=== PATIENT | male | born 1970 | race Caucasian/White ===

== ENCOUNTER 2016-07-26 10:46 | Inpatient (IN) | payer OTHER ==
[~2016-07-26] VITALS: Ht 175.3 cm; Wt 69.2 kg
--- NOTE | ~2016-07-26 | INDIVTXPLN ---
"PATIENT: KEENAN CONNOLLY | | [facility] UNIT #: [id number] | [address] AGE/SEX: 46 M : 70 | [address] | [place] [address] ADMIT/REG DATE: 07/26/16 | ROOM: [facility] LOC: ADTC | ADTC | Individualized Treatment Plan Date: 02 AUGUST 2016 Problem Statement/Issue Identified: KEENAN HAS RELAPSED AFTER MULTIPLE TREATMENT ATTEMPTS. Goal: KEENAN WILL LEARN ABOUT ALL ASPECTS OF HIS DISEASE AND BECOME WILLING TO FOLLOW THROUGH WITH ANY AND ALL STAFF RECOMMENDATIONS FOR HIS AFTERCARE. Objectives/Activities to achieve goal: 1. Keenan will complete GETTING STARTED IN TREATMENT identifying his feelings about being in treatment again, a brief life history and identifying his characteristics in active addiction vs. his characteristics in active recovery. He will process his work with his primary counselor and selected pages with his peer group. Due Date: Complete: Incomplete: 2. Keenan will read [employer] high-lighting those thinking and behaviorial patterns he recognizes as his own. He will process any new insights with his primary counselor. Due Date: Complete: Incomplete: 3. Keenan will complete an honest and thorough STEP ONE identify specific examples of high risk behaviors, efforts to control or end his chemical use and a list of personal values he has compromised in his addiction. He will process his work and insights gained with his primary counselor and selected pages with his peer group. Due Date: Complete: Incomplete: Client signature Date Counselor signature Date Outcome/Measurement of Progress Towards Goal: Counselor's signature Date "
--- NOTE | ~2016-07-26 | TXPLANREV ---
"PATIENT: GIO OCNNOLLY | | [facility] UNIT #: [id number] | [address] AGE/SEX: 46 M : 70 | [address] | [place] [address] ADMIT/REG DATE: 07/26/16 | ROOM: [facility] [place] LOC: ADTC | ADTC | Treatment Plan/Staffing Review Date: 14 AUGUST 2016 Treatment plan was reviewed and determined appropriate as written: TREATMENT PLAN IS APPROPRIATE WRITTEN. Treatment plan was reviewed and the following changes/addition/deletions are necessary: NO CHANGES/ADDITIONS/DELETIONS ARE NECESSARY. Discharge plans were reviewed and determined appropriate as previously documented: [facility] Discharge plans were reviewed and determined to be as follows: TENTATIVE DISCHARGE DATE IS 23 AUGUST 2016. Other pertinent issues discussed during this staffing review include: CLIENT LEARNED YESTERDAY THAT HE IS ACCEPTED IN TO THE [facility] IN [place]. CLIENT IS EXCITED AND LOOKING FORWARD TO A NEW BEGINNING IN A NEW COMMUNITY. CLIENT HAS MADE GOOD PROGRESS ON HIS TREATMENT PLAN OBJECTIVES. HE CONTINUES TO GAIN NEW INSIGHT AND UNDERSTANDING. CLIENT HAS A SPONSOR AND HAS AN ESTABLISHED SUPPORT SYSTEM IN THE [employer] THAT HE IS DRAWING ON FOR TRANSPORTATION TO [place]. CLIENT EXPRESSES EXCITMENT ABOUT MEETING NEW PEOPLE AND GETTING INVOLVED IN THE [employer] COMMUNITY IN [place]. HE IS WORKING ON SPIRITUALITY AND RELAPSE PREVENTION/MAINTAINANCE PLAN. Staff Present: COCO HINDS PRIMARY COUNSELOR: CARISA COHEN [facility] Client Signature Counselor Signature Date Time "
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
--- NOTE | ~2016-07-26 | TXPLANREV ---
"PATIENT: GIO CONNOLLY | | [facility] UNIT #: [id number] | [address] AGE/SEX: 46 M : 70 | [address] | [place] [address] ADMIT/REG DATE: 07/26/16 | [facility] | ADTC | Treatment Plan/Staffing Review Date: 21 AUGUST 2016 Treatment plan was reviewed and determined appropriate as written: TREATMENT PLAN IS APPROPRIATE WRITTEN. Treatment plan was reviewed and the following changes/addition/deletions are necessary: NO CHANGES/ADDITIONS/DELETIONS ARE NECESSARY. Discharge plans were reviewed and determined appropriate as previously documented: YES Discharge plans were reviewed and determined to be as follows: CLIENT HAS BE[facility]. HE WILL BE ADMITTED THERE SATURDAY 1 PM. Other pertinent issues discussed during this staffing review include: CLIENT IS NEARLY FINISHED WITH TREATMENT PLAN OBJVECTIVES. HE HAD TWO MORE FEELINGS LETTER TO COMPLETE AND WILL FINISH PROCESSING MY CHANGE PLAN TOMORROW. CLIENT'S SPONSOR WILL PICK HIM UP ON SATURDAY AND TRANSPORT HIM TO [place]. Staff Present: NIURKA HINDS PRIMARY COUNSELOR: CARISA COHEN [facility] Client Signature Counselor Signature Date Time "
--- NOTE | ~2016-07-26 | TXPLANREV ---
"PATIENT: GIO CONNOLLY | | [facility] UNIT #: [id number] | [address] AGE/SEX: 46 M : 70 | [address] | [place] [address] ADMIT/REG DATE: 07/26/16 | ROOM: [facility] LOC: ADTC | ADTC | Treatment Plan/Staffing Review Date: 09 AUGUST 2016 Treatment plan was reviewed and determined appropriate as written: TREATMENT PLAN IS APPROPRIATE WRITTEN. Treatment plan was reviewed and the following changes/addition/deletions are necessary: ADDITIONAL TREATMENT PLANS WERE CREATED TO FOCUS ON RELAPSE, FEELINGS/UNRESOLVED FAMILY OF ORIGIN ISSUES/GUILT AND SHAME; SPIRITUALITY Discharge plans were reviewed and determined appropriate as previously documented: NO DISCHARGE PLAN HAS BEEN PREVIOUSLY DOCUMENTED. Discharge plans were reviewed and determined to be as follows: CLIENT HAS MADE APPLICATION FOR RESIDENCE AT [facility]. TENTATIVE DISCHARGE DATE IS 23 AUGUST 2016. Other pertinent issues discussed during this staffing review include: CLIENT IS MAKING GOOD PROGRESS ON TREATMENT PLAN OBJECTIVES. HE CONTINUES TO GAIN A BETTER UNDERSTANDING OF ALL ASPECTS OF HIS ADDICTION; PARTICIPATES WELL IN BOTH INDIVIDUAL AND GROUP SESSIONS AND IS WILLING TO OFFER FEEDBACK AND PROVIDE SUPPORT TO PEERS. CLIENT HAS VERBLIZED WILLINGNESS TO ENTER A SENIOR LIVING HOUSE OR OTHER SOBER LIVING SINCE HE WAS ADMITTED. Staff Present: ALEXA HINDS PRIMARY COUNSELOR: CARISA COHEN [facility] Client Signature Counselor Signature Date Time "
--- NOTE | ~2016-07-26 | INDIVTXPLN ---
"PATIENT: KEENAN CONNOLLY | | [facility] UNIT #: [id number] | [address] AGE/SEX: 46 M : 70 | [address] | [place] [id number] ADMIT/REG DATE: 07/26/16 | ROOM: [facility] LOC: ADTC | [facility] | Individualized Treatment Plan Date: 09 AUGUST 2016 Problem Statement/Issue Identified: KEENAN'S [facility]/ONGOING CHEMICAL USE HAS RESULTED IN ESTRANGED RELATIONSHIPS WITH HIS FAMILY, UNEMPLOYMENT, FINANCIAL STRESS, HOMELESSNESS AND LEGAL PROBLEMS. Goal: KEENAN WILL LOOK AT THE CONSEQUENCES OF HIS ASSISTED SUBSTANCE ABUSE AND DETERMINE THAT HE WANTS SOMETHING MORE FOR HIS LIFE. Objectives/Activities to achieve goal: 1. Keenan will complete MY CHANGE PLAN identifying attitudes and behaviors that he is willing to change to increase his odds and maintaining mcfp and quality sobriety. He will process his work with his primary counselor and selected pages with his peer group. Due Date: Complete: Incomplete: 2. Keenan will complete RELAPSE PREVENTION packet and process his responses with his primary counselor. Due Date: Complete: Incomplete: 3. Keenan will have a TEMPORARY SPONSOR selected by the end of his second week of treatment and will be willing to call him periodically during the remainder of his stay at [facility]. He will process insights gained from these conversations with his primary counselor. Due Date: Complete: Incomplete: 4. Keenan will attend and and all 12 Step meetings available while he is in treatment, will be willing to lead a 12-step meeting while he is here and will reach out to connect with old-timers who attend the meetings as a means of developing a healthy support system outside of treatment. Due Date: Complete: Incomplete: Client signature Date Counselor signature Date Outcome/Measurement of Progress Towards Goal: Counselor's signature Date "
--- NOTE | ~2016-07-26 | INDIVTXPLN ---
"PATIENT: KEENAN CONNOLLY J | | [facility] UNIT #: [id number] | [address] AGE/SEX: 46 M : 70 | [address] | [place] [address] ADMIT/REG DATE: 07/26/16 | [facility] ADTC | Individualized Treatment Plan Date: 09 AUGUST 2016 Problem Statement/Issue Identified: KEENAN PROFESSES ALBER IN GOD BUT CONTINUES TO TURN TO ALCOHOL/DRUGS A MEANS OF COPING WITH DISAPPOINTMENTS, FRUSTRATIONS AND OTHER LIFE STRESSORS. Goal: KEENAN WILL EXAMINE HIS BELIEF VS. ALBER IN GOD AND DEVELOP A CLOSER AND MORE PERSONAL RELATIONSHIP WITH IS HIGHER POWER WHILE HE IS IN TREATMENT. Objectives/Activities to achieve goal: 1. Keenan will complete SPIRITUAL ASSESSMENT and will discuss his work and insights gained with his primary counselor. Due Date: Complete: Incomplete: 2. Keenan will read LETTING GO OF THE NEED TO CONTROL highlighting beliefs and behaviors from examples provided in the text that parallel his own experience. He will discuss these and insights gained with his primary counselor. Due Date: Complete: Incomplete: 3. Keenan will attend all SPIRITUALITY EDUCATION/ENRICHMENT provided on the unit sharing new understanding and insights gained with his primary counselor. Due Date: Complete: Incomplete: Client signature Date Counselor signature Date Outcome/Measurement of Progress Towards Goal: Counselor's signature Date "
--- NOTE | ~2016-07-26 | RESCARESUM ---
"PATIENT: GIO CONNOLLY | | [facility] UNIT #: [id number] | [address] AGE/SEX: 46 M : 70 | [address] | [place] [address] ADMIT/REG DATE: 07/26/16 | ROOM: [facility] LOC: ADTC | ADTC | Summary of Residential Care Primary Counselor: Carisa Cohen [facility] [place] Date of Admission: 26 JULY 2016 Date of Discharge: 23 AUGUST 2016 Referral Source: [facility] Primary Care Provider Prior to Admission: DR. 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 Continued Obstacles to Sobriety/Relapse Issues: LACK OF HEALTHY SUPPORT SYSTEM; CHRONIC HEALTH ISSUES, FINANCIAL STRESSORS, CODEPENDENCY/ RELATIONSHIP DEPENDENCE, FAILURE TO TAKE MEDICATION DIRECTED, SELF-PITY Family Issues Addressed: NO FAMILY INVOLVEMENT; CLIENT DID ADDRESS UNRESOLVED FAMILY OF ORIGIN ISSUES Y Individual Therapy Y Group Therapy Y Educational Series on Substance Abuse Y Acute Medical Problems During the Course of Treatment CLIENT IS HIV POSITIVE N Transferred to Hospital During the Course of Treatment Y Accepting of Substance Abuse Problem Completed AA Step # 1 During This Level of Care VERY HONEST WITH THIS Significant Incidences During Treatment: NONE Reason For Discharge: Y Completed Residential [place] Goals and Ready For Next Level of Care PATIENT: GIO CONNOLLY | | [facility] UNIT #: [id number] | [address] AGE/SEX: 46 M : 70 | [address] | [place] [phone] ADMIT/REG DATE: 07/26/16 | ROOM: [facility] LOC: ADTC | ADTC | Summary of Residential Care Continuing Care Plan/Recommendations: Y Sponsor Y AA Meetings/NA Meetings Y / [facility] Y Mental Health Therapy Specific Continuing Care Plan: CLIENT WILL ADMIT TO [facility] FOLLOWING SUCCESSFUL COMPLETION OF RESIDENTIAL TREATMENT. IT IS RECOMMENDED THAT HE RESIDE AT [facility] FOR A PERIOD OF SIX TO NINE MONTHS OR UNTIL DISCHARGED WITH STAFF APPROVAL. CLIENT IS FURTHER ENCOURAGED TO FOLLOW AND AND ALL RECOMMENDATIONS BY STAFF AT THE [facility]. PRIMARY COUNSELOR: CARISA COHEN [facility]"
--- NOTE | 2016-07-26 15:21 | NUR ---
ADMISSION NOTE Client is a 46 y/o single male referred to treatment by the [facility] Board. Client was brought here today from [facility], where he had been for 6 days, by CSU staff. Client states medical allergy to Neviropine and Bentyl and brings numerous home medications with him. Client states DOC is meth, last used 10 days ago in an unknown amount. Client states that he tested positive for MDMA at that time. Client previously used heroin, last used in 2008. Client lives alone in [place] and does not anticipate any family for family group. Client was searched, no contraband found. Client did turn in a cell phone for storage at the [employer]. Rights/Responsibilities: Copy given and explained to client. Signed and accepted by client. Client oriented to physical lay out of the ADTC unit, given Big Book and admission packet. A Ron was assigned. Lyndon Nam
--- NOTE | 2016-07-26 16:35 | NUR ---
Education 1 Hour: Client heard a presentaion on "Wellness in Recovery."
--- NOTE | 2016-07-26 17:32 | NUR ---
INDIVIDUAL SESSION 1 HR: Client still working on initial paperwork, but was able to spend some time with him and welcome him to treatment. I encouraged him to start on GETTING STARTED packet and scheduled an appointment for tomorrow. It does not appear that there will be any family participation.
--- NOTE | 2016-07-26 23:10 | NUR ---
Tech note: Client worked on craft projects for [employer] for rec and attended AA meeting SE:Entering treatment
--- NOTE | 2016-07-27 00:12 | NUR ---
Education note: Clients watched a movie on "my attitude' by Noé Guerrero.
--- NOTE | 2016-07-27 04:57 | NUR ---
Bed note; client was motionlees, with eyes closed at all bed checks.
--- NOTE | 2016-07-27 12:01 | NUR ---
Group 1.5 Hr Ratio 1:12/Topics today were a change plan, resentment packet and a getting started. One new peer was orientated to group rules and goals. Client was orientated to group rules and goals. Client did not share much and said he is just seeing how this treatment is run as he has been in treatment 7 times before.
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
--- NOTE | 2016-07-27 14:34 | NUR ---
FAMILY NOTE: No family involvement is planned at this time.
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
--- NOTE | 2016-07-27 16:29 | NUR ---
Tech Note: Client went with group for outside walk and watched "Marijuana", by Jaskaran Guerrero, for education. Clt is working on Getting Started.
--- NOTE | 2016-07-27 23:54 | NUR ---
Tech Note: Client read guidelines with peers. Client attended A.A. SE: Prayer in the chap
--- NOTE | 2016-07-28 05:34 | NUR ---
Bed Note: Client was motionless with eyes closed at all bed checks.
--- NOTE | 2016-07-28 15:51 | NUR ---
Tech Note: Client working on Stinkin Thinkin and Getting Started.
--- NOTE | 2016-07-28 20:36 | NUR ---
Tech Note: Client played a game for rec. They also attended the A.A.Meeting at [address] [place] [address]. SE: He was able to identify with someone at the morning A.A.Meeting
--- NOTE | 2016-07-29 05:32 | NUR ---
Bed Note: Client was motionless with eyes closed at all bed checks.
--- NOTE | 2016-07-29 15:36 | NUR ---
Tech Note: Client participated in Big Book Study. Client stated that he is working on, "How to Get Started in Treatment" and "Stinkin' Thinkin." Client attended rastafarian.
--- NOTE | 2016-07-29 23:36 | NUR ---
Client attended A.A.Panel and helped with community clean. He also attended the [employer] meeting. SE: He kept his temper under control
--- NOTE | 2016-07-30 05:04 | NUR ---
Bed Note: Client was motionless with eyes closed at all bed checks.
--- NOTE | 2016-07-30 10:13 | NUR ---
Tech note: Client is working on BB
--- NOTE | 2016-07-30 12:52 | NUR ---
Group 1.5 hr/ 9:1 Client did give feedback to peers sharing packet/letters.
--- NOTE | 2016-07-30 14:38 | NUR ---
Education note: Client attended speaker for education Maximo Rosado
--- NOTE | 2016-07-30 16:00 | NUR ---
RECOVERY 101 1 HR/ Clients all filled out list of 30 consequences from their use to help look at how each addictive chemical they ever used has caused problems and how minimizing can sabotage treatment. Discussed this and also learned about phases of recovery process from Denial to Acceptance & Surrender.
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
--- NOTE | 2016-07-30 22:45 | NUR ---
TECH NOTE: Client played Catch Phrase in REC, and attended NA meeting. SE: hearing information about his kids
--- NOTE | 2016-07-30 23:59 | NUR ---
Education: 1 Hour. Client attended "Adult Children" presentation given by staff.
--- NOTE | 2016-07-31 05:24 | NUR ---
BED NOTE: Client was in bed, motionless with eyes closed all three bed checks.
--- NOTE | 2016-07-31 11:30 | NUR ---
GROUP 1.5 HRS. 1:10 Group discussion included defenses of blaming others and willingness to take responsibility for one's recovery. Peers processed HOW TO GET STARTED IN TREATMENT assignments. This client appeared attentive and offered appropriate feedback. He had shared about himself indicating that alcohol was not a problem for him but is able to see now that it does lead him back to other drug use.
--- NOTE | 2016-07-31 16:26 | NUR ---
Relapse Prevention; 1.0 hours; Client attended and actively participated in relapse prevention which focused on compulsive behaviors and relapse.
--- NOTE | 2016-07-31 16:33 | NUR ---
Tech Note: Client attended speaker meeting, presented by [employer], and Relapse Prevention education. Client is currently working on Step 1 and the Big Book.
--- NOTE | 2016-07-31 23:24 | NUR ---
Education note: 1 hour lecture given by counselor on "Self Esteem"
--- NOTE | 2016-07-31 23:42 | NUR ---
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
--- NOTE | 2016-08-01 04:14 | NUR ---
BED NOTE: Client was in bed, motionless with eyes closed all three bed checks.
--- NOTE | 2016-08-01 10:57 | NUR ---
Tech note: Client is working on Step 1
--- NOTE | 2016-08-01 13:16 | NUR ---
Education note: Client attended speaker Tony for education today.
--- NOTE | 2016-08-01 20:00 | NUR ---
SPIRITUaL EDUCATION 1 HR. Today we discussed difference between spirituality and jehovah's witness, and then played a spiritual challenge game where group discussed thought provoking questions on spirituality and the meaning.
--- NOTE | 2016-08-01 22:43 | NUR ---
EDUCATION NOTE: 1 HR Counselor gave a lecture on Disease Concept
--- NOTE | 2016-08-01 23:50 | NUR ---
tech note: client played Pictionary for recreation & attended onsite NA mtg. SE: that he shared today.
--- NOTE | 2016-08-02 04:14 | NUR ---
BED NOTE: Client was in bed, motionless with eyes closed all three bed checks.
--- NOTE | 2016-08-02 06:29 | NUR ---
Medication NOte: Client took prn Mucinex and ibuprophen;. Client c/o congestion and H/A rated at 6.
--- NOTE | 2016-08-02 11:46 | NUR ---
Group 1.5 hrs 2:20 Client sat quietly during group. Client shared when prompted about what he was grateful for. Student: Kiana Tsang
--- NOTE | 2016-08-02 15:55 | NUR ---
Tech Note: Client participated in Spiritual Enrichment in the morning and went for an outdoor walk in the afternoon. Client stated that he is working on Step One and reading the Big Book.
--- NOTE | 2016-08-02 16:00 | NUR ---
INDIVIDUAL SESSION 1 HR: Met with client with the intent to process from his KIP THINKIN PACKET, but didn't. Asked him to read through his INITIAL INDIVIDUALIZED TREATMENT PLAN, which he did without hesitation. Client verbalized agreement with the plan and signed all copies. Additional copies were made for his journal. Client explained that he had given his debit card to another client's girlfriend (jocelyn!) so that she could go and draw out $450+ fregoso for him. Client explained that he needed to get the $$$ out of his account because there was a large check that might come in that would wipe out his balance. Staff expressed concerns about client having that much fregoso here on the unit and he was agreeable to having it put in the safe as soon as he received it...if he did indeed get the $$ and his card back. The GF did return with the fregoso which was put directly in the safe. Client insisted on holding $60 on his person, which I again discouraged, but he claims he has it with him even in the shower. Client is working on his STEP ONE & was encouraged to start on FEELINGS LETTERS.
--- NOTE | 2016-08-02 22:08 | NUR ---
EDUCATION NOTE 1HR: Recovery committee presented information on recovery
--- NOTE | 2016-08-02 22:12 | NUR ---
EDUCATION NOTE 1HR: Clients watched Jaskaran Guerrero video on Behavior
--- NOTE | 2016-08-02 22:41 | NUR ---
TECH NOTE: Client helped by doing crafts for the dance for REC, and attended AA meeting.
--- NOTE | 2016-08-03 04:41 | NUR ---
Bed note: client was in bed moitionless with eyes closed and no distress at all bed checks.
--- NOTE | 2016-08-03 12:00 | NUR ---
GROUP 1.5 HR/ 10:1 A Peer shared about never thinking about actions/impulsive and this led to group relating and sharing. This client did give feedback, he is one of the oldest in group and stressed how he hopes they get recovery at a younger age, doesn't want them to go through the hurt he has with 2 of his 3 kids that won't even talk to him anymore.
--- NOTE | 2016-08-03 15:51 | NUR ---
PEER REVIEWS 1.25 HRS: Clt participated in peer reviews and took a risk to give open and honest feedback to those receiving a review.
--- NOTE | 2016-08-03 16:21 | NUR ---
Tech Note: Client watched video (The Enablers) and is working on Step 1 and Feelings Letters.
--- NOTE | 2016-08-03 19:11 | HP ---
ADMIT: 07/26/2016 RM/LOC: [facility] MR#: [id number] [address] [facility] [place], [place] [id number] [address] [place] [address] History and Physical SEX: M AGE: 46 : 1970 DATE OF SERVICE: 07/26/2016 This is for his admission to the residential care program with the [facility]. CHIEF COMPLAINT: Drug problem, methamphetamine addiction. CLINICAL HISTORY: The patient is a 46-year-old white male, admitted to the residential care program for treatment of his methamphetamine use disorder, cannabis use disorder, and opioid use disorder. The patient readily admits that he is a drug addict. He comes to treatment after recently being EPC'd to [facility]. The patient was EPC'd on 07/08/2016, after having used methamphetamine heavily for several days. He states he overdosed on the meth. He was having paranoid ideation, homicidal thoughts toward his ex- as well as suicidal thoughts. For that reason, he was EPC'd and remained at [facility] from 07/08/2016 through 07/18/2016. He was then dismissed to [facility] for further detox and has been at the [facility] for the past 8 days. He comes to treatment on 07/26/2016 noting that methamphetamine is his drug of choice. He has been using meth off and on since age 13. He has been an IV drug user for years. He typically, when using, uses anywhere from a half a g to up to as much as 2 g per day noting that he will stay up for days at a time, sometimes as long as 5-7 days. He notes that meth has always been his drug of choice. He has had some periods of sobriety when he was not using meth. He notes he was confined to snf for almost 6 years. Beginning in 1995, he did 3 stays in snf which totaled about 6 years in total between 1995 and 2004. He notes while he was in snf, he could not get meth but they could get heroin and he switched addiction to heroin, using heroin from 1995 to 2008. He notes that heroin was his second drug of choice, but he has not used any heroin since moving to [place] in 2008. Prior to moving to [place] in 2008, he was living in [place] and heroin was easier to get than methamphetamine. After moving to [place], he went back to using meth. His third drug of choice is marijuana. He has been smoking pot since he was about age 10. Typically, he notes he goes through about a g of pot per week. Notes that he uses pot to come down from the meth when he has been using heavily. The patient admits to past alcohol abuse and drinking heavily in the past. He notes when he was not using meth, he drank a lot along with the heroin, but in the past he has been a daily drinker, but in the last 7-8 years has drank very little focusing mainly on meth and pot. He has been an IV drug user since age 19. He notes he has experimented with almost every other type of drugs that is out there. He has used LSD and mushrooms in the past. He has used MDMA in the past. He used inhalants as a young adolescent. He has abused prescription narcotics in the past but does not really care for those. The patient has had treatment on at least 3 or 4 occasions. He most recently did the [facility] program in December of 2014. He did not complete that program. In 2011, he did [facility], and then followed that with an outpatient [facility] treatment program and had 2-1/2 years of sobriety. He also did treatment while he was in the [facility] and has done some other outpatient treatment in the past as well. He comes to treatment at this time realizing that his methamphetamine use is out of control and is causing his life to spin out of control, and he realizes he needs to seek treatment so ADMIT: 07/26/2016 RM/LOC: [id number] MR#: [id number] [address] [place] [id number] [address] [place] [address] History and Physical SEX: M AGE: 46 : 1970 that he can get clean and stay sober. PAST MEDICAL HISTORY: He notes he has had many psychiatric hospitalizations in the past. Most recently, he was at [facility] from 07/08/2016 through 07/18/2016. He notes that he has had hospitalizations or surgical procedures. He had an inguinal hernia repair in 1993. He had exploratory abdominal surgery for a perforated colon in [place] in 2015. He has had previous ER visit for kidney stone in the past, but notes that that stone passed spontaneously. His most significant medical history is that he was diagnosed with HIV in May of 1997, tested positive for HIV while he was in snf. He has been on antiviral therapy since that time, although he notes when he is using heavily, he frequently goes off his antiviral medications. CURRENT MEDICATIONS: Include: 1. Gabapentin 300 mg three capsules four times a day. 2. Olanzapine 10 mg one at bedtime. 3. Flonase 2 whiffs each nostril twice a day. 4. Naltrexone 50 mg once daily. 5. Lamictal 200 mg once daily. 6. Propranolol 10 mg t.i.d. 7. Isentress 400 mg one twice a day. 8. Descovy 200/25 one daily. 9. Omeprazole 20 mg daily. 10.Benztropine 0.5 mg one b.i.d. for tremor. 11.Vistaril 25 mg every 6 hours for anxiety. 12.Ibuprofen 200 mg one or two tablets every 6 hours for pain. ALLERGIES: HE IS ALLERGIC TO AN ANTIVIRAL MEDICINE BY THE NAME OF NIVOROPINE. ALSO ALLERGIC TO BENTYL. PAST MEDICAL HISTORY: The patient has history of AIDS/HIV positive. He also has a history of chronic GERD and has been diagnosed with multiple psychiatric disorders including bipolar disorder, chronic anxiety disorder, and PTSD. Also, has history of drug-induced psychosis. REVIEW OF SYSTEMS: CONSTITUTIONAL: No fevers, chills, or night sweats. HEENT: No upper respiratory congestion. Does have some chronic sinus allergies. PULMONARY: He is a smoker, typically smokes a pack a day. He also goes through about a can of chew per day. Denies cough or chest congestion at this time. CARDIAC: No chest pain. No palpitations. GASTROINTESTINAL: History of chronic GERD, acid reflux, chronic gastritis due to his medications. He has had no hematemesis, no melena. He has had previous abdominal exploration for perforated rectum. GENITOURINARY: No voiding symptoms. MUSCULOSKELETAL: No bone or joint complaints. NEUROLOGIC: He has history of neuropathy pain in his hands and feet in part ADMIT: 07/26/2016 RM/LOC: [facility] MR#: [id number] [address] [facility] [address] [place] [id number] [address] [facility] [address] [place] [address] History and Physical SEX: M AGE: 46 : 1970 related to his HIV but also thought to be related to past frostbite. Had severe frostbite on his hands and feet following a suicide attempt. NEUROLOGIC: No history of strokes or seizures. ENDOCRINE: No history of diabetes. PSYCHIATRIC: Extensive past psych history. SOCIAL HISTORY: The patient has been twice and twice. His first marriage lasted 6 months. His second marriage lasted 3 years. He notes he dropped out of school after the 8th grade. He did get a GED while in snf. Typically, he does construction work or other manual labor. The patient notes that he is currently living alone in a home he rents in [place], [place]. He was recently EPC'd and is on a mental health board commitment. He does admit to past confinement in snf on 3 occasions, totalling about 6 years in snf. He does have charges pending for terroristic threats, DUI, and criminal trespassing. He also is currently on mental health board commitment. FAMILY HISTORY: He notes his parents when he was age 9. He has a younger sister. He is unaware of any other significant family-related health problems. He does note that his paternal uncle is an alcoholic and an addict. He was his uncle who first introduced him to marijuana at the age of 10. PHYSICAL EXAMINATION: VITAL SIGNS: Temp is 97, pulse 73, respirations 16, blood pressure 119/77, height is 5 feet 9 inches, weight is 154 pounds. GENERAL: The patient is a 46-year-old male, who appears his stated age. He is in no acute distress. He is oriented x3. HEENT: Reveals his ears to be clear. Nose and throat are noninflamed. Oropharynx unremarkable. Dentition in poor repair. NECK: Supple. Thyroid not enlarged. No cervical adenopathy. LUNGS: Noted to be clear. HEART: He has regular rhythm without murmur. ABDOMEN: Soft, nontender. Bowel sounds normoactive. He does have a scar in his lower abdomen from previous exploratory abdominal surgery. He has no hernias. GENITALIA: Normal male. EXTREMITIES: Normal to gross exam. No clubbing or cyanosis. No peripheral edema. He does have diminished sensation and hyperesthesia on his fingertips and toes. NEUROLOGICAL: Other than for his neuropathy symptoms, no other focal neurologic deficits. Balance and gait are normal. MENTAL STATUS EXAMINATION: He is pleasant, cooperative. Affect is appropriate. He does admit to past suicidal ideation and numerous previous attempts. He is having no bizarre ideation. No delusions at this time. Notes that the current Zyprexa he is on is controlling his mind racing and hallucinations. Memory appears to be intact. He is of average intelligence. His insight is limited. Judgment is guarded. ADMIT: 07/26/2016 RM/LOC: [facility] MR#: [id number] [address] [facility] [address] [place], [place] [phone] [address] [place] [id number] History and Physical SEX: M AGE: 46 : 1970 ASSESSMENT AT THE TIME OF ADMISSION: 1. Stimulant/methamphetamine use disorder, severe. 2. Cannabis use disorder, severe. 3. Opioid/heroin use disorder, severe, in full sustained remission. 4. Alcohol use disorder, moderate. 5. Tobacco use disorder. 6. HIV positive/AIDS. 7. Chronic gastroesophageal reflux disease/gastritis. 8. Chronic anxiety disorder. 9. Drug-induced psychosis. 10.Bipolar disorder. 11.Peripheral neuropathy with chronic pain. PLAN: Plan is to admit the patient to the residential care program with a tentative discharge date of 08/23/2016. Upon completion of treatment, would strongly recommend that the patient go to a jail house. The patient will benefit from the supportive environment and structure of a sober living community. Chris Ramirez MD/ zana JOB #: [id number] CC: Chris Ramirez, Attending Physician FAMILY PHYSICIAN, Family Physician
--- NOTE | 2016-08-03 22:26 | NUR ---
Tech Note : Client worked crafts and projects for the dance. Client watched TV. Client attende an offsite AA meeting.
--- NOTE | 2016-08-04 04:39 | NUR ---
Bed note: Client was in bed with eyes closed and no distress at all bed checks.
--- NOTE | 2016-08-04 17:58 | NUR ---
Tech Note: Client attended N.A. Panel and is working on Step 1, and BB.
--- NOTE | 2016-08-04 19:11 | NUR ---
tech note: client attended offsite Alumni Dance.
--- NOTE | 2016-08-04 22:51 | NUR ---
tech note: client c/o cold symptoms @ 5029,mucinex was given.
--- NOTE | 2016-08-05 04:56 | NUR ---
BED NOTE: Client was in bed, motionless with eyes closed all three bed checks.
--- NOTE | 2016-08-05 16:16 | NUR ---
Medication Note: 0745 - Client took prn ibuprophen for body aches rated at 6; and benzonatate, Mucinex and Cepacol lozenge for cold-like symptoms. Client took ibuprophen again at 1135 for body aches rated at 6 and benzonatate at 1520.
--- NOTE | 2016-08-05 17:15 | NUR ---
Tech Note: Client participated in Big Book Study in the morning and went for a walk in the afternoon. Client stated that he is working on Step One and writing Feelings Letters. Client attended yazidism.
--- NOTE | 2016-08-05 23:43 | NUR ---
tech note: Client attended AA Panel & participated in Community Clean. Client watched tv. SE: AA Panel.
--- NOTE | 2016-08-06 04:28 | NUR ---
bed note: client was in bed with eyes closed and no distress at all bed checks.
--- NOTE | 2016-08-06 10:45 | NUR ---
Tech notes: Client is working on Step 1 and Fl's.
--- NOTE | 2016-08-06 12:00 | NUR ---
Peer Review 1.5 hr/ Clients all participated in giving peer review to 4 peers on what they need to work on.
--- NOTE | 2016-08-06 12:56 | NUR ---
Education note: Client attended educational carlos Riggins on Marijuana.
--- NOTE | 2016-08-06 16:41 | NUR ---
Recovery 101 1 hr/ Clients discussed fundamental tools and what is important to work a strong recovery program such as: 12 steps, getting and using a sponsor, meetings/home group, read C.A.L., H.O.W./being honest, service work, HP concepts/spirituality, opening up, slogans, serenity prayer, etc. Also discussed the balance, recovery as way of life, 85% is the living problem and why people still go to meetings for their lifetime.
--- NOTE | 2016-08-06 23:49 | NUR ---
Tech Note: Client attended N.A.Meeting. Client also went on walk for rec. SE:30 day chip in N.A.
--- NOTE | 2016-08-06 23:59 | NUR ---
Education Note: 1 hour lecture on communication given by counselor.
--- NOTE | 2016-08-07 04:14 | NUR ---
Bed Note: client was in bed with eyes closed and no distress at all bed checks except last bed check where he was speaking. I believe client was just talking in his sleep because he was still talking after I had left the room.
--- NOTE | 2016-08-07 14:31 | NUR ---
A.MTrevor 1.5 hr group/ratio 1:8/ Group heard a feelings letter. Discussion was on healthy verses unhealthy relationships and how addiction affects your children. This client related and shared about his kids.
--- NOTE | 2016-08-07 17:07 | NUR ---
Relapse Prevention, 06/07, 1.0 hours, Client attended and actively participated in relapse prevention which focused on completing the quiz What Do You Know About Relapse?
--- NOTE | 2016-08-07 17:42 | NUR ---
ech Note: Client is working on a Grief Pkt.
--- NOTE | 2016-08-07 23:22 | NUR ---
Tech Note: Client took walk around park for rec. Client attended A.A.Meeting. SE: Group
--- NOTE | 2016-08-07 23:27 | NUR ---
Education Note: Client attended a one hour session with [facility] on HIV/AIDS/STD's for education.
--- NOTE | 2016-08-08 04:51 | NUR ---
Bed Note: client was in bed with eyes closed and no distress at all bed checks.
--- NOTE | 2016-08-08 10:33 | NUR ---
Tech notes: Client is working on Fl's.
--- NOTE | 2016-08-08 10:44 | NUR ---
INDIVIDUAL SESSION 1 HR: Client had questions on STEP ONE. Was able to resolve his concern and confusion on two pages and some of the overlap in his examples. Client asked that he not have to share Page 12. I told him not to provide any written responses on that page and that we can address these in session. He is also working on FEELINGS LETTERS and had some questions.
--- NOTE | 2016-08-08 12:38 | NUR ---
Group 1.5 Hr Ratio 1:9/Topics today were orientating two new clients to group rules and goals, feelings letters and a Getting Started Packet. Client shared a feelings letter to his son and related to others sharing assignments and issues.
--- NOTE | 2016-08-08 15:40 | NUR ---
SPIRITUAL EDUCATION 1 hr. Today we oriented newcomers, discussed Starfish story then reached out to newcomers writing letters of encouragment and welcome, and using word art to make Big Book Bookmarks as welcoming gift.
--- NOTE | 2016-08-08 17:29 | NUR ---
MENTAL HEALTH BOARD: Notification sent to [employer]ist [facility] the [facility].
--- NOTE | 2016-08-08 17:30 | NUR ---
DISCHARGE PLANNING; Paperwork has been faxed to [facility].
--- NOTE | 2016-08-08 19:15 | NUR ---
Education: 1 Hour. Client attended Step 2 & Step 3 lecture given by staff.
--- NOTE | 2016-08-08 23:43 | NUR ---
Tech note : Client went for a walk around the park for rec and attended an onsite NA meeting. SE: Giving peers chips
--- NOTE | 2016-08-09 05:17 | NUR ---
tech note: client was motionless in no distress at all bed checks.
--- NOTE | 2016-08-09 11:30 | NUR ---
AM GRP 1.5 HRS, Ratio 1:10/ Clt offered great feedback to a peer who got honest w/ the grp. He could relate to past experiences.
--- NOTE | 2016-08-09 14:04 | NUR ---
Tech Note: Client participated in Spiritual Enrichment in the morning and went for an outdoor walk in the afternoon. Client followed programming. Client left the unit for an off-campus doctor's appointment, transported via neurosurgery research director at 1300.
--- NOTE | 2016-08-09 14:19 | NUR ---
Education 1 Hour: Client heard a lecture and saw a demonstration on "Infection Prevention."
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
--- NOTE | 2016-08-09 23:18 | NUR ---
Tech note:client took walk for rec, participated in guided meditation and attended AA mtg. SE: making it thru Doctors appointment.
--- NOTE | 2016-08-10 04:56 | NUR ---
Bed Note: Client was motionless with eyes closed at all bed checks.
--- NOTE | 2016-08-10 11:39 | NUR ---
GROUP 1.5 HRS. 1:9 This client processed from his step 1 assignment listing how he betrayed his values (pg. 10) and the effects on others (pg. 11). Client did a good job taking responsibility for his own behaviors.
--- NOTE | 2016-08-10 12:41 | NUR ---
Peer Review 1.5 hr/ Clients all participated in giving peer review to 4 peers on what they need to work on.
--- NOTE | 2016-08-10 13:55 | NUR ---
Tech Note: Client watched Predator Pt.2 video and is working on a Shame Face pkt.
--- NOTE | 2016-08-10 15:18 | NUR ---
INDIVIDUAL SESSION 1 HR: Client completed processing from STEP ONE. He has done well with this and was willing to expand on some of his examples. He was assigned LETTING GO OF THE NEED TO CONTROL & SHAME-FACED. Session 08/13
--- NOTE | 2016-08-10 23:55 | NUR ---
TECH NOTE: Client participated in reading guidelines, attended optional offsite AA meeting, and watched tv/movies. Client was late to community meeting SE: phone
--- NOTE | 2016-08-11 04:10 | NUR ---
BED NOTE: Client was in bed, motionless, with eyes closed all bed checks.
--- NOTE | 2016-08-11 16:16 | NUR ---
Tech Note: Client attended an off-site AA meeting in the morning and received a visit in the afternoon. Client stated that he is working on, "Shame-Faced."
--- NOTE | 2016-08-11 19:51 | NUR ---
TECH NOTE: Client played miCab for REC, attended offsite AA meeting and watched tv/movies. SE: visitors
--- NOTE | 2016-08-12 04:15 | NUR ---
Bed Note: Clt lay motionless in bed with eyes closed showing no distress at all bed checks.
--- NOTE | 2016-08-12 12:51 | NUR ---
Medication Note: Client took prn cepacol lozenge at 1035 and 1245.
--- NOTE | 2016-08-12 14:16 | NUR ---
Medication Note: Client took prn ibuprophen for sinus H/A rated at 7.
--- NOTE | 2016-08-12 16:23 | NUR ---
Tech Note: Client read chapter 4 for Big Book study. Clt is working on Shame Face and went to [facility].
--- NOTE | 2016-08-12 22:34 | NUR ---
Tech Note : Client listened to an AA panel member share his experience, strength and hope, watched tv and participated in community clean. Client attended an onsite WEB DEVELOPMENT INTERN meeting.
--- NOTE | 2016-08-13 04:53 | NUR ---
Bed Note: Clt lay motionless in bed with eyes closed showing no distress at all bed checks.
--- NOTE | 2016-08-13 10:25 | NUR ---
Tech notes: Client is working on Shame Face
--- NOTE | 2016-08-13 13:35 | NUR ---
Educational Note: Client watched a video "Inhalent Abuse"
--- NOTE | 2016-08-13 16:00 | NUR ---
Recovery 101 1 hr/ Clients all brought Big Books and were given highlighters to use big book as a tool in recovery. Group discussion was on honesty, half- measures, selfishness, resentments, forgiveness, 12 promises, acceptance, using sponsor, and more.
--- NOTE | 2016-08-13 17:06 | NUR ---
INDIVIDUAL SESSION 1 HR: Client excited to learn today that he is accepted [facility]. Also allowed client to all [facility] to notify them that he will be going to [place]. Client processed the remainder of his STEP ONE. He has done well with this and appeared to be honest and forthcoming. Client has been through multiple treatments (7) and is very open about his behaviors. 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 Client believes that this in particular is an abomination toward God and nearly unforgivable. He did a brief STEP FIVE with one of the chaplins from the hospital and seems to be doing better. Tomorrow, we will go over KIP LARA.
--- NOTE | 2016-08-13 18:23 | NUR ---
EDUCATION NOTE: 1HR Lecture on Feelings given by counselor.
--- NOTE | 2016-08-13 23:03 | NUR ---
tech note: Client went for a walk for rec, attended NA meeting SE: talk to [facility]
--- NOTE | 2016-08-14 04:43 | NUR ---
bed note:client was in bed with eyes closed and no distress at all bed checks.
--- NOTE | 2016-08-14 11:30 | NUR ---
GROUP 1.5 HRS. 1:9 Clients oriented new peer to purpose and rules of group. Discussion included peers HOW TO GET STARTED IN TREATMENT which included issues of moving, using to fit in, family issues and being away from kids.
--- NOTE | 2016-08-14 14:41 | NUR ---
Tech Note: Client participated in light stretching in the morning and went for an outdoor walk in the afternoon. Client stated that he is working on, "Shame Faced" and "Letting Go of the Need to Control."
--- NOTE | 2016-08-14 14:48 | NUR ---
Education 0.5 Hour: Client watched the video, "How to Sabotage Your Treatment."
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
--- NOTE | 2016-08-14 19:00 | NUR ---
Education: 1 Hour. Staff gave lecture on Step 1.
--- NOTE | 2016-08-14 19:41 | NUR ---
COUNSELOR NOTE: Another counselor came to me and shared that this client left programing earlier and explained to her that he just needed some time to himself. I did talk with the client and it is obvious he is anxious and fearful. Client believes that one of the medications he is prescribed works against him (welbutrin?) and he has been told that it is not appropriate for people who have problems with rages. I did leave a voice main for the RN on staff in hopes that she will discuss this with the doctors in staffing in the morning. Client said he feels like he did when he was at [facility] and it was an issue with the medication. I will leave now and be on vacation until Saturday.
--- NOTE | 2016-08-14 23:50 | NUR ---
tech note: client played Pictionary for recreation,attended Guided Meditation & onsite AA meeting. SE: met with counselor.
--- NOTE | 2016-08-15 04:48 | NUR ---
tech note: Client was motionless in no distress at all bed checks.
--- NOTE | 2016-08-15 10:15 | NUR ---
Tech note: Client is working on Shame Face, Letting Go, Change Plan
--- NOTE | 2016-08-15 13:13 | NUR ---
Group 1.5 hours 1:10 Clients orientated a new peer to group rules and purpose of group. Assignments were shared and clients gave feedback to peers. Client sat quietly through group and offered little feedback. Student: Kiana Tsang
--- NOTE | 2016-08-15 18:24 | NUR ---
SPIRITUAL EDUCATION 1 HR. ORIENTED NEWCOMERS, DISCUSSED ADDICTIVE SELF VS SPIRITUAL SELF THEN DEPICTED IN ARTWORK.
--- NOTE | 2016-08-15 18:25 | NUR ---
Education: 1 Hour. Client attended Relapse Prevention lecture given by staff.
--- NOTE | 2016-08-15 23:55 | NUR ---
Tech note: client played Catch Phrase for recreation & attended onsite NA meeting. Client came in late for the NA meeting-told tech he would explain why later. Client didn't notify tech what the reason was. SE: Recreation.
--- NOTE | 2016-08-16 04:27 | NUR ---
Bed Note: Clt lay motionless in bed with eyes closed showing no distress at all bed checks.-
--- NOTE | 2016-08-16 14:47 | NUR ---
Tech Note: Client participated in light stretching for morning exercise and went on an outdoor walk in the afternoon. Client stated that he is working on, "Letting Go of the Need to Control" and "My Change Plan."
--- NOTE | 2016-08-16 16:20 | NUR ---
Education 1 Hour: Client watched the video, "Feelings" by Father Devonte.
--- NOTE | 2016-08-16 16:53 | NUR ---
FAMILY EDUCATION 3 hrs. Client attended alone and took part in the discussion on the disease concept and the progression and consequences.
--- NOTE | 2016-08-16 19:04 | NUR ---
Education 1HR: Clt watched video entitled "Say Yes To Life" by father Juliocesar Fraireoth.
--- NOTE | 2016-08-16 19:46 | NUR ---
MED NOTE: Client took Motrin for Head ache. PL 09/26
--- NOTE | 2016-08-16 23:04 | NUR ---
Tech Note: Clt played a game for recreation, attended GM and onsite AA mtg. SE was family grp
--- NOTE | 2016-08-17 04:46 | NUR ---
BED NOTE: Client was in bed, motionless with eyes closed all bed checks
--- NOTE | 2016-08-17 10:44 | NUR ---
Tech Note: Client is working on Letting Go and Change Plan.
--- NOTE | 2016-08-17 11:30 | NUR ---
AM GRP 1.5 HRS, Ratio 1:11/ Clt participated in grp discussion on various topics and could relate to being in tx several times and not being able to stay clean/sober for any substantial period of time. He stated he feels different this time.
--- NOTE | 2016-08-17 13:35 | NUR ---
Late Note for 08/13/16 due to illness: Group 1.5 hr/ 22:2 Clients all participated in Sculpturing today by role-playing, giving feedback and relating. This client was attentive and all did discuss relapse can happen to anyone, and how to prevent it.
--- NOTE | 2016-08-17 13:53 | NUR ---
Late Note for 08/14/16 due to illness: Relapse Prevention, 06/07, 1.0 hours, Client attended and actively participated in relapse prevention educatio which focused on internal and external triggers.
--- NOTE | 2016-08-17 15:08 | NUR ---
Peer review 1 hr/This client recieved a peer review and peers said he thinks he has all the answers, is too confident, needs to share more, is afraid, has pain and reservations, and is stuck in his ways, needs to trust in self, too hard on self.
--- NOTE | 2016-08-17 22:24 | NUR ---
Tech note : Client watched tv and participated in beaded project. He walked to an offsite AA meeting and talked on the phone.
--- NOTE | 2016-08-18 04:51 | NUR ---
Bed note: Client was in bed with eyes closed and no distress at all bed checks.
--- NOTE | 2016-08-18 15:08 | NUR ---
Tech note: Client attended NA panel and is working on Change plan and had visit
--- NOTE | 2016-08-18 20:55 | NUR ---
Tech note: Client worked on Polwireed projects or watched basketball game for rec attended offsite AA meeting SE:family visits
--- NOTE | 2016-08-19 05:17 | NUR ---
Bed note: client was in bed with eyes closed and no distress at all bed checks,
--- NOTE | 2016-08-19 15:37 | NUR ---
TECH NOTE: Client participated in big book study, attended judaism, and watched tv/movies.
--- NOTE | 2016-08-19 19:06 | NUR ---
tech note:Attended AA panel, participated in community clean, watched tv and movies
--- NOTE | 2016-08-20 04:25 | NUR ---
tech note: Client was motionless in no distress at all bed checks.
--- NOTE | 2016-08-20 09:53 | NUR ---
Tech note: Client is working on Change plan
--- NOTE | 2016-08-20 13:03 | NUR ---
Education note: Client attended education speaker Zaina on tobacco
--- NOTE | 2016-08-20 13:05 | NUR ---
Group 1.5 hr/ 10:1 Clients heard peers share letters and packet on criminal/ irresponsble behavior and how to change. Clients discussed negative self-talk, shame and how to cope with using thoughts plus it does get better if work the program. This client related and gave good feedback.
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
--- NOTE | 2016-08-20 20:32 | NUR ---
Education 1HR: Clt attended lecture given by counselor on Forgiveness.
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
--- NOTE | 2016-08-20 23:38 | NUR ---
Tech note: Client participated in family group this evening.
--- NOTE | 2016-08-21 04:14 | NUR ---
Bed Note: Clt lay motionless in bed with eyes closed showing no distress at all bed checks.
--- NOTE | 2016-08-21 11:17 | NUR ---
INDIVIDUAL SESSION 1 HR: Client processing through MY CHANGE PLAN/RELAPSE PREVENTION packets. He has done well with this, verbalizes willingness to go to any lengths to be successful. Client shared about conversations with son and his dad this weekend. Client said he tried to contact his mom, but believes that she "is not talking to him again." He said that she didn't talk to him for years, then reconnected when he had his two years of sobriety. Once he relapsed, she pulled away again. We talked about this. Client has a lot of hurt over this rejection as dad has stayed connected. We talked about the differences between how men and women process their feelings and he seemed to gain better understanding. I suggested that mom may live to regret her decision and that she likely would have done better had she sought help for herself in [place] & counseling so that she could better cope with the disappointment when he relapsed. Staff suggested that family members have to learn to let go of any and all expectations to be able to deal with a practicing alcoholic/addict. Client read through and signed TX PLAN REVIEW. Brief session tomorrow to complete CONTINUED CARE PLAN and hear last two FEELINGS LETTERS. Client will discharge 10A.
--- NOTE | 2016-08-21 15:30 | NUR ---
Tech Note: Client participated in light stretching for morning exercise and went on an outdoor walk in the afternoon. Client followed programming.
--- NOTE | 2016-08-21 16:30 | NUR ---
Relapse Prevention, 06/07, 1.0 hours, Client attended and actively participated in relapse prevention education which focused on early warnning signs of relapse.
--- NOTE | 2016-08-21 23:15 | NUR ---
Tech note : client participated in rec by decorating for [employer]. Client went to the alumni meeting and attended an onsite AA meeting.
--- NOTE | 2016-08-22 05:21 | NUR ---
Bed note : Client was motionless with eyes closed at all bed checks.
--- NOTE | 2016-08-22 10:13 | NUR ---
Isabelle Notes: Client is working on BB and mtg with robbi
--- NOTE | 2016-08-22 12:14 | NUR ---
PEER REVIEW 22:1/1.5 HR: Client and peers participated in peer review. Client did well in expressing & providing appropriate feedback.
--- NOTE | 2016-08-22 12:51 | NUR ---
Education note: Client attended education by [facility]
--- NOTE | 2016-08-22 17:20 | NUR ---
SPIRITUaL EDUCATION 1 HR. Today we oriented newcomers and the activity was reading and putting on presentations on portions of TOWARDS SPIRITUALITY.
--- NOTE | 2016-08-22 19:20 | NUR ---
med note: client complained of headache. pain level 5. motrin given
--- NOTE | 2016-08-22 20:00 | NUR ---
FINAL SESSION 1 HR: Client completed processing MY CHANGE PLAN/RELAPSE PREVENTION Packets. He has done well with these. Client is very aware of triggers, it is just when they hit, he usually stops caring and drinks/uses anyway! A CONTINUED CARE plan was made, signed and Medallion presented. Client will discharge tomorrow morning and go to [place].
--- NOTE | 2016-08-22 22:31 | NUR ---
Tech note : Client went for a walk and worked on some crafts. Client celebrated a tech's birthday and attended an onsite NA meeting.
--- NOTE | 2016-08-22 22:44 | NUR ---
SPIRITUaL EDUCATION 1 HR. Today we oriented newcomers and the activity was reading and putting on presentations on portions of TOWARDS SPIRITUALITY.
--- NOTE | 2016-08-23 04:59 | NUR ---
Bed note: Client was moitionless with eyes closed at all bed checks.
--- NOTE | 2016-08-23 08:53 | NUR ---
DISCHARGE NOTE Client completed treatment and left the facility with a friend. Client took his personal property with him, but inadvertently left behind his home medications. Discharge instructions were reviewed and a signed copy provided to the client.
--- NOTE | 2016-09-20 12:41 | DS ---
ADMIT: 07/26/2016 RM/LOC: [facility] MR#: [id number] [address] [place], [place] [id number] GIO CONNOLLY [facility] [address] [place] [id number] General Discharge Summary SEX: M AGE: 46 : 1970 ADMISSION DATE: 07/26/2016 DISCHARGE DATE: 08/23/2016 ADMITTING DIAGNOSIS: As per history and physical. FINAL DIAGNOSES: 1. Stimulant/methamphetamine use disorder, severe. 2. Cannabis use disorder, severe. 3. Opioid/heroin use disorder, severe, in full sustained remission. 4. Alcohol use disorder, moderate. 5. Tobacco use disorder. 6. Human immunodeficiency virus positive/acquired immune deficiency syndrome. 7. Chronic gastroesophageal reflux disease/chronic gastritis. 8. Chronic anxiety disorder. 9. Drug-induced psychosis. 10.Bipolar disorder. 11.Peripheral neuropathy with chronic pain. CLINICAL HISTORY: The patient is a 46-year-old white male, admitted to the residential care program for treatment of his methamphetamine use disorder, cannabis use disorder, and opioid use disorder. For details of his pattern of usage and problems associated with his ongoing substance abuse and chemical dependency, please see the clinical history portion of the dictated history and physical. Please also see dictated history and physical for past medical history and pertinent findings on physical exam. LABORATORY AND X-RAY SUMMARY FROM THIS ADMISSION: None indicated, none performed during this hospital stay. HOSPITAL COURSE: The patient was admitted to the residential care program and assigned to his primary counselor, Austin Nino [facility]. He remained in the treatment program from 07/26/2016 until 08/23/2016. While in treatment, he participated in individual therapy and group therapy. He was also given the educational series on substance abuse and worked on many of these assignments while he was in the treatment program. While in the treatment program, he participated in the family education and family group portion of the program, but none of his family participated. While in treatment, he had no acute medical problems, but it is noted that he is HIV positive but is maintained on antiviral therapy for his HIV and is asymptomatic of his AIDS. While in treatment, he was accepting of his substance abuse problem. He worked well with the staff in both individual and group settings. He was able to complete all of his goals and objectives of treatment. He worked hard on his assignments and completed these thoroughly. He was very honest and open about his chemical dependency. He gained a better understanding of the disease concept of addiction and was able to recognize his powerlessness over alcohol and drugs. He was able to identify obstacles to his long-term sobriety and worked on his own personal relapse prevention plan. He was able to complete step 1 of AA during this level of care and was ADMIT: 07/26/2016 RM/LOC: [facility] MR#: [id number] [address] [facility] [address] [place] [id number] GIO CONNOLLY [facility] [address] [place] [address] General Discharge Summary SEX: M AGE: 46 : 1970 very honest with this. During treatment, he had no significant medical issues or complications. He completed treatment and was felt to be ready for the next level of care. It was recommended that he go to a [place]. He was admitted to the [facility] in [place] and is going to reside there for 6 to 9 months until dismissed with staff approval. He was encouraged to follow all recommendations by the staff at the [facility]. He is to attend 5 to 7 AA or NA meetings per week and maintain regular contact with a sponsor. He will need ongoing mental health counseling and management of his psychotropic medications. MEDICATIONS: At dismissal included the followin. Gabapentin 300 mg three capsules four times a day. 2. Zyprexa 10 mg at bedtime. 3. Flonase two whiffs each nostrils twice daily. 4. Cogentin 0.5 mg two tablets b.i.d. 5. Lamictal 200 mg daily. 6. Propranolol 10 mg t.i.d. 7. Isentress 400 mg b.i.d. 8. Descovy 200/25 one tablet daily. 9. Omeprazole 20 mg daily. 10.Multivitamin 1 daily. 11.Thiamine 100 mg daily. CONDITION AT DISCHARGE: Stable and improved. PROGNOSIS: [place] to be good if he follows through on the extended [place] stay. Chris Ramirez MD/ zana JOB #: [id number] CC: Chris Ramirez MD, Attending Physician NO FAMILY PHYSICIAN, Family Physician
== END 2016-08-23 08:50 | disposition home or self-care (01) | DRG 895 ==
LOC: ADTC 10:46
PROVIDERS: ADMIT Family Medicine
PROC: HZ43ZZZ Group Counseling for Substance Abuse Treatment, 12-Step (ICD-10-PCS; principal; 2016-07-26)
PROC: HZ34ZZZ Individual Counseling for Substance Abuse Treatment, Interpersonal (ICD-10-PCS; principal; 2016-07-26)
DX: F15.20 Other stimulant dependence, uncomplicated (principal); G62.9 Polyneuropathy, unspecified; F19.259 Other psychoactive substance dependence with psychoactive substance-induced psychotic disorder, unspecified; R44.3 Hallucinations, unspecified; F12.20 Cannabis dependence, uncomplicated; F11.21 Opioid dependence, in remission; F10.20 Alcohol dependence, uncomplicated; F17.210 Nicotine dependence, cigarettes, uncomplicated; Z21 Asymptomatic human immunodeficiency virus [HIV] infection status; F41.9 Anxiety disorder, unspecified; G89.29 Other chronic pain; F31.9 Bipolar disorder, unspecified; K29.50 Unspecified chronic gastritis without bleeding; K21.9 Gastro-esophageal reflux disease without esophagitis; Z91.5 Personal history of self-harm; Z65.3 Problems related to other legal circumstances